=== PATIENT | male | born 2005 | race Caucasian/White ===

== ENCOUNTER → 2024-01-13 08:24 | Outpatient (CLI) | payer OTHER, MEDICAID, SELFPAY ==
[2024-01-13 10:40] LABS: BUN Creatinine Ratio 15.4 (6-22); Blood Urea Nitrogen 12 mg/dL (9-20); Calcium 9.9 mg/dL (8.4-10.2); Carbon Dioxide 27 mmol/L (22-32); Chloride 104 mmol/L (98-107); Estimated Glomerular Filt Rate > 60 mL/min (>60); Glucose 95 mg/dL (70-100); HEMOLYSIS < 15 (0-50); Potassium 4.4 mmol/L (3.4-5.1); Sodium 140 mmol/L (137-145)
== END ==
PROVIDERS: PCP Student in an Organized Health Care Education/Training Program; Referring Provider Internal Medicine Endocrinology, Diabetes & Metabolism; Visit Provider Internal Medicine Endocrinology, Diabetes & Metabolism
DX: E23.2 Diabetes insipidus (principal)
CPT/HCPCS: 36415; 80048

== ENCOUNTER 2025-03-03 09:04 | Emergency (ER) | payer OTHER, MEDICAID, SELFPAY ==
[2025-03-03 09:15] VITALS: BP 137/83; PULSE 104; RESP 12; TEMP 36.6; O2SAT 97; BMI 25.1
--- NOTE | 2025-03-03 09:16 | ED_ITS ---
HPI - Recheck/Abnormal Lab/Rx General Chief Complaint: Recheck/Abnormal Lab/Rx Stated Complaint: Sent from Dr. Jiménez- Sodium level critically low Time Seen by Provider: 03/03/25 09:06 History of Present Illness HPI narrative: Patient is a 19-year-old male history of autism, diabetes insipidus presenting today with low sodium per mom. He was seen evaluated by PCP yesterday he has intermittent vomiting it comes and goes they are working it up he had some vomiting so they went into the primary they did some blood work sodium found to be 125. He is eating and drinking normally. He is able to take all of his medications as scheduled. No fever or chills. He has never had any kind of imaging for his vomiting. He is also being worked up for a platelet disorder Related Data Allergies Allergy/AdvReac Type Severity Reaction Status Date / Time NSAIDS (Non-Steroidal Allergy Mild bleeding Verified 03/03/25 09:15 Anti-Inflamma Patient History Social History Smoking Status: Never smoker Exam Initial Vital Signs Initial Vital Signs: Vital Signs Temperature 98 F 03/03/25 09:15 Pulse Rate 104 H 03/03/25 09:15 Respiratory Rate 12 03/03/25 09:15 Blood Pressure 137/83 03/03/25 09:15 Pulse Oximetry 97 03/03/25 09:15 Oxygen Delivery Method Room Air 03/03/25 09:15 GENERAL: Alert slightly pale 19-year-old male no acute distress HEENT: Head atraumatic,EOMI, pupils reactive, face symmetric, moist mucous membranes CARDIOVASCULAR: Regular rate and rhythm without murmurs, rubs or gallops. RESPIRATORY: Breath sounds equal bilaterally, no wheezes rales or rhonchi. ABDOMEN: Soft, nontender. Normoactive bowel sounds all 4 quadrants. No guarding or rebound. EXTREMITIES: Normal range of motion, no clubbing or edema. Neurovascularly intact NEUROLOGICAL: Alert and oriented x4.Normal gait and speech. Cranial nerves II through XII grossly intact. SKIN: Warm, dry, no laceration, no petechiae, no rashes or lesions. Course Orders Ordered: ED Orders 03/03/25 09:14 CT abdomen pelvis w con Stat 03/03/25 09:19 Venous Blood Gas STAT 03/03/25 09:30 Complete Blood Count AUTO DIFF Stat Comprehensive Metabolic Panel Stat Ketones (Beta-Hydroxybutyrate) Stat Lipase Stat 03/03/25 09:41 Venous Blood Gas Routine Vital Signs Vital signs: Vital Signs - 8 hr 03/03/25 09:15 Temperature 98 F Pulse Rate 104 H Respiratory Rate 12 Blood Pressure 137/83 Pulse Oximetry 97 Oxygen Delivery Method Room Air MDM - Recheck/Abnormal Lab/Rx Lab Data 03/03/25 09:30 03/03/25 09:30 Labs: Lab Results 03/03/25 03/03/25 Range/Units 09:30 09:41 WBC 3.1 L (4.5-11.0) X10^3/uL RBC 5.32 (4.5-5.9) X10^6/uL Hgb 15.9 (13.5-17.5) g/dL Hct 45.1 (41-53) % MCV 84.8 (80-100) fL MCH 29.9 (26-34) PG MCHC 35.3 (30-36) % RDW 13.8 (11.6-14.8) % Plt Count 229 (150-400) X10^3/uL Neut % (Auto) 37.2 L (50-75) % Lymph % (Auto) 44.5 H (25-40) % Branch % (Auto) 16.8 H (3-14) % Eos % (Auto) 1.2 L (2-4) % Baso % (Auto) 0.3 (0-2) % Neut # (Auto) 1200 L (8243-6463) /uL Lymph # (Auto) 1400 (3127-4744) /uL Branch # (Auto) 500 (0-900) /uL Eos # (Auto) 0 (0-450) /uL Baso # (Auto) 0 (0-100) /uL VBG pH 7.45 H (7.33-7.43) VBG pCO2 32.0 L (45-50) mmHg VBG pO2 73 H (35-45) mmHg VBG HCO3 22 L (24-28) mmol/L VBG Total CO2 21 L (24-29) mmol/L VBG O2 Saturation 95 H (70-75) % VBG Base Excess -0.5 L (0-4) mmol/L Sodium 132 L (137-145) mmol/L Potassium 4.6 (3.4-5.1) mmol/L Chloride 95 L (98-107) mmol/L Carbon Dioxide 26 (22-32) mmol/L BUN 8 L (9-20) mg/dL Creatinine 0.77 (0.66-1.25) mg/dL Estimated GFR > 60 (>60) mL/min BUN/Creatinine Ratio 10.4 (6-22) Glucose 99 (70-99) mg/dL Calcium 9.9 (8.4-10.2) mg/dL Total Bilirubin 0.7 (0.2-1.3) mg/dL AST 35 (17-59) IU/L ALT 22 (<50) IU/L Alkaline Phosphatase 63 (38-126) U/L Total Protein 9.1 H (6.3-8.2) g/dL Albumin 5.4 H (3.5-5.0) g/dL Globulin 3.7 (1.7-4.1) g/dL Albumin/Globulin Ratio 1.5 (1.0-2.8) Lipase 60 (23-300) U/L Ketones 0.13 (<0.27) mmol/L Urine Dip Bedside Urine Glucose Negative Bedside Urine Bilirubin - Negative Bedside Urine Ketone - Negative Urine Specific [place] 1.010 Bedside Urine Occult Blood - Negative Bedside Urine pH 6.0 Bedside Urine Protein - Negative Bedside Urine Urobilinogen - Negative Bedside Urine Nitrite - Negative Bedside Urine Leukocytes - Negative Esterase Imaging Data CT scan - abdomen/pelvis: Radiologist's Impression: PROCEDURE: CT ABDOMEN PELVIS W CON INDICATIONS: vomting TECHNIQUE: After the administration of intravenous contrast, axial sections acquired from the lung bases to the pubic symphysis. Coronal and sagittal reformats were performed. For radiation dose reduction, the following was used: automated exposure control, adjustment of mA and/or kV according to patient size. COMPARISON: None. FINDINGS: Image quality: Diagnostic. Lower Chest: No significant findings. ABDOMEN: Liver: No solid mass. Gallbladder: No radiopaque gallstones or wall thickening. Biliary ducts: No biliary dilation. Pancreas: No ductal dilation. Spleen: Size is within normal limits. Adrenal Glands: No adrenal nodules. Kidneys and Ureters: No hydronephrosis. No solid mass. No complex renal cystic lesion which requires follow up. Stomach and Bowel: There is no bowel obstruction. No gastric or small bowel wall thickening. Appendix is visualized in right lower quadrant and is within normal limits. [id number] fecal stasis throughout the colon is seen extending to distal sigmoid colon and rectum. No abscess collection. No colonic wall thickening. Peritoneum: No abnormal intraperitoneal fluid. No free air. Ventral Wall: No significant ventral hernia. Abdominal Nodes: No retroperitoneal or mesenteric adenopathy by size criteria. Vessels: Aorta and inferior vena cava are normal in size. PELVIS: Pelvic Organs: Unremarkable. Bladder: Well distended urinary bladder, no calcified bladder stones or bladder wall thickening. Pelvic Nodes: No enlarged lymph nodes. Miscellaneous: No inguinal hernias are seen. Bones: No aggressive osseous abnormality. IMPRESSION: 1. Moderate constipation. Normal appendix. No bowel obstruction. No free fluid or free air. 2. Well distended urinary bladder. No obstructing renal stones or hydronephrosis. Dictated by: Wilmer Ho M.D. on 03/03/2025 at 10:07 Approved by: Wilmer Ho M.D. on 03/03/2025 at 10:10 MDM Narrative Medical decision making narrative: MDM CC: Abnormal blood work Complicating co-morbidities: Diabetes insipidus autism schizophrenia Data collected from: Mother Medical records reviewed: Mom was able to pull up my chart sodium yesterday was 125 Differential considered: Hyponatremia electrolyte abnormality Exam documented above, pertinent findings include: Alert very well-appearing 19-year-old male abdomen soft nontender Lab Test results independently reviewed as above. Pertinent findings: CBC shows leukopenia WBC is 3.1 no anemia CMP sodium 132 potassium 4.6 chloride 95 carbon dioxide 26 BUN 8 creatinine 0.7 Venous pH 7.4 Ketones 0.3 Independently reviewed EKG as above Imaging studies independently reviewed: CT abdomen and pelvis shows constipation in the distended bladder Consultations: 1234 Dr. Espinoza veneer lathe operator updated on symptoms agree with outpatient follow-up no change in medication needed Treatments: None Re-evaluations: Patient voided here in the ED postvoid residual was 517 Discussion: Patient 19-year-old male history of diabetes insipidus presenting today with hyponatremia. Yesterday had outpatient blood work with a sodium of 125. Today he has a sodium of 132. Mildly tachycardic vitals are otherwise stable. CT shows a distended bladder. He is able to urinate does not quite empty all the way but no evidence of infection. Discharge Plan Departure Patient Disposition: Home Clinical Impression: Diabetes insipidus Activity Restrictions/Additional Instructions: *You have been diagnosed with diabetes insipidus *What to do: Please follow up with your veneer lathe operator. I tried calling them. I would definitely have your sodium and labs rechecked with your primary this week please call to have that done *Continue to take medications as directed *Follow up with your primary care provider in 2-3 days or call [phone] *Return to ER if you should have any new, worsening or concerning symptoms Referrals: Alysia Lara DO [Primary Care Provider, Internal Medicine] Stand Alone Forms: Patient Portal/API
[2025-03-03 09:43] LABS: Add Manual Diff / Slide Review NO; Hematocrit 45.1 % (41-53); Hemoglobin 15.9 g/dL (13.5-17.5); Lymphocytes Absolute Auto 1400 /uL (1100-4500); Mean Corpuscular HGB Conc 35.3 % (30-36); Mean Corpuscular Hemoglobin 29.9 PG (26-34); Mean Corpuscular Volume 84.8 fL (80-100); Platelet Count 229 X10^3/uL (150-400)
[2025-03-03 09:44] LABS: Base Excess VBG -0.5 mmol/L (0-4); HCO3 VBG 22 mmol/L (24-28); Oxygen Saturation VBG 95 % (70-75); PCO2 VBG 32.0 mmHg (45-50); PO2 VBG 73 mmHg (35-45); Total CO2 VBG 21 mmol/L (24-29); pH VBG 7.45 (7.33-7.43)
[2025-03-03 10:01] LABS: Alanine Aminotransferase 22 IU/L (<50); Albumin 5.4 g/dL (3.5-5.0); Albumin Globulin Ratio 1.5 (1.0-2.8); Alkaline Phosphatase 63 U/L (38-126); Blood Urea Nitrogen 8 mg/dL (9-20); Calcium 9.9 mg/dL (8.4-10.2); Carbon Dioxide 26 mmol/L (22-32); Chloride 95 mmol/L (98-107); Estimated Glomerular Filt Rate > 60 mL/min (>60); Globulin 3.7 g/dL (1.7-4.1); Glucose 99 mg/dL (70-99); HEMOLYSIS 31 (0-50); Lipase 60 U/L (23-300); Potassium 4.6 mmol/L (3.4-5.1); Sodium 132 mmol/L (137-145); Total Protein 9.1 g/dL (6.3-8.2)
[2025-03-03 10:10] LABS: Ketones (Beta-Hydroxybutyrate) 0.13 mmol/L (<0.27)
--- NOTE | 2025-03-03 10:18 | PC.NURSE ---
Patient has large urinary bladder on CT image. bladder scan requested from .
[2025-03-03 12:35] VITALS: BP 109/75; PULSE 104; RESP 16; O2SAT 99
== END 2025-03-03 12:57 | disposition home or self-care (01) ==
PROVIDERS: Emergency Provider Emergency Medicine; PCP Student in an Organized Health Care Education/Training Program
DX: E23.2 Diabetes insipidus (principal)
CPT/HCPCS: 36415; 51798; 74177; 80053; 81003; 82009; 82805; 83690; 85025; 99283; Q9967